=== PATIENT | male | born 1985 | race Caucasian/White ===

== ENCOUNTER 2020-10-09 07:59 | Inpatient (IN) | payer MEDICAID ==
[~2020-10-09 07:59] MED LIST: Dexamethasone 4 MG/ML SDV ONE; Glycopyrrolate 0.2 MG/ML 5 ML MDV ONE; Neostigmine Methylsulfate 1 MG/ML 5 ML Syringe ONE; Ondansetron 4 MG/2 ML SDV ONE; Propofol 200 MG/20 ML SDV ONE; Rocuronium 50 MG/5 ML Vial ONE; Succinylcholine 200 MG/10 ML MDV ONE; cefOXitin 2 GM Vial ONE; fentaNYL 250 MCG/5 ML SDV ONE
[2020-10-09] MEDS ORDERED: Celecoxib 200 MG Cap PO ONE (08:15)
[2020-10-09] MEDS ORDERED: Scopolamine 1.5 MG Transdermal Patch TOP ONE (08:15)
[2020-10-09] MEDS ORDERED: Acetaminophen 500 MG Tab PO ONE (08:15)
[2020-10-09] MEDS ORDERED: Dextrose 5%-Lactated Ringers 1,000 ML IV SCH (08:30)
[2020-10-09] MEDS ORDERED: cefOXitin 2 GM in Sodium Chloride 0.9% 50 ML IV ONE (09:45)
[2020-10-09] MEDS ORDERED: Magnesium Sulfate/Water 2 GM/50 ML BAG IV SCH ×2 (10:00→10:15)
[2020-10-09] MEDS ORDERED: Ketamine 500 MG/5 ML MDV IV SCH (10:00)
[2020-10-09] MEDS ORDERED: Ketamine 50 MG in Sodium Chloride 0.9% 49.5 ML IV SCH (10:00)
[2020-10-09] MEDS ORDERED: fentaNYL 250 MCG/5 ML SDV ONE ×2 (10:22→11:00)
[2020-10-09] MEDS ORDERED: Rocuronium 50 MG/5 ML Vial ONE (11:26)
[2020-10-09] MEDS ORDERED: Lactated Ringers 1,000 ML ONE (12:09)
[2020-10-09] MEDS ORDERED: hydrOXYzine HCL 100 MG/2 ML SDV IM ONE (14:28)
[2020-10-09] MEDS ORDERED: Cyclobenzaprine 10 MG Tab PO PRN (15:41)
[2020-10-09] MEDS ORDERED: Ondansetron 4 MG/2 ML SDV IVPUSH PRN (16:00)
[2020-10-09] MEDS ORDERED: Metoclopramide 10 MG/2 ML SDV IVPUSH PRN (16:00)
[2020-10-09] MEDS ORDERED: Labetalol 20 MG/4 ML Syringe IVPUSH PRN (16:00)
[2020-10-09] MEDS ORDERED: HYDROmorphone 0.5 MG/0.5 ML Syringe IVPUSH PRN (16:00)
[2020-10-09] MEDS ORDERED: Calcium Gluconate 10% 1 GM/10 ML SDV IVPUSH PRN (16:00)
[2020-10-09] MEDS ORDERED: Acetaminophen 500 MG Tab PO PRN (16:00)
[2020-10-09] MEDS ORDERED: HYDROmorphone 1 MG/ML Syringe IV PRN (16:00)
[2020-10-09] MEDS ORDERED: oxyCODONE 5 MG Tab PO PRN (16:00)
[2020-10-09] MEDS ORDERED: diphenhydrAMINE 50 MG/ML SDV IVPUSH PRN (16:00)
[2020-10-09] MEDS: MVI, Adult with Vitamin K 10 ML, Thiamine 200 MG, Zinc/Copper/Manganese/Selenium 1 ML i... IV SCH ×4 (16:21)
[2020-10-09] MEDS: cefOXitin 2 GM in Sodium Chloride 0.9% 50 ML IV SCH ×2 (16:23→21:57)
[2020-10-09] MEDS: Pantoprazole 40 MG Vial IVPUSH SCH (16:30)
[2020-10-09] MEDS: Acetaminophen 500 MG Tab PO SCH ×2 (16:31→23:26)
[2020-10-09] MEDS: Heparin Sodium 5,000 Units/ML Vial SUBCUT SCH (17:36)
[2020-10-09] MEDS: hydrOXYzine HCL 100 MG/2 ML SDV IM PRN (20:17)
[2020-10-09] MEDS: Dextrose 5%-Lactated Ringers 1,000 ML IV SCH (23:00)
[2020-10-10] MEDS: hydrOXYzine HCL 100 MG/2 ML SDV IM PRN ×2 (02:53→14:24)
[2020-10-10] MEDS: Heparin Sodium 5,000 Units/ML Vial SUBCUT SCH ×3 (03:00→17:19)
[2020-10-10] MEDS: cefOXitin 2 GM in Sodium Chloride 0.9% 50 ML IV SCH ×4 (04:07→21:29)
[2020-10-10] MEDS: Dextrose 5%-Lactated Ringers 1,000 ML IV SCH ×2 (04:47→08:57)
[2020-10-10] MEDS ORDERED: Iopamidol 612 MG/ML 50 ML SDV PO ONE (05:35)
--- NOTE | 2020-10-10 06:42 | CRLCR ---
For Patients: As a result of the Century Cures Act, medical imaging exams and procedure reports are released immediately into your electronic medical record. You may view this report before your referring provider. If you have questions, please contact your health care provider. INDICATION: Status post bariatric surgery. COMPARISON: None available. FINDINGS: For films of the abdomen are obtained in the erect position during the swallowing of 50 cc of Isovue-300. The initial image is a workforce planner view which shows a Deejay-Sanders drain in the left epigastric region, as well as a Deejay-Sanders drain in the central upper abdomen crossing the midline. The bowel gas pattern is unremarkable with no distention to suggest obstruction or ileus. There is no sign of free air. With the swelling of contrast, there is opacification of the small gastric remnant and prompt passage of contrast through the gastrojejunostomy, with no sign of any obstruction. There is no sign of any extravasation of contrast from the gastric remnant. The osseous structures are normal in appearance for the patient`s age. The lung bases are clear. The heart appears to be mildly enlarged, but this is probably projectional. IMPRESSION: Prompt passage of contrast from the gastric remnant into the nondistended jejunum. No sign of any extravasation of contrast from the bowel. Dictated by Christian Lyles MD @ 10/10/2020 6:40:[address] Christian Lyles @ Oct 10 2020 6:40AM
[2020-10-10] MEDS: Acetaminophen 500 MG Tab PO SCH ×3 (08:41→23:03)
[2020-10-10] MEDS: SCOPOLAMINE PATCH CHECK TOP SCH (08:42)
[2020-10-10] MEDS: Celecoxib 200 MG Cap PO SCH ×2 (08:42→21:28)
[2020-10-10] MEDS: traMADol 50 MG Tab PO PRN ×2 (09:10→21:28)
[2020-10-10] MEDS: Pantoprazole 40 MG Vial IVPUSH SCH (15:48)
[2020-10-10] MEDS: MVI, Adult with Vitamin K 10 ML, Thiamine 200 MG, Zinc/Copper/Manganese/Selenium 1 ML i... IV SCH ×4 (15:48)
[2020-10-11] MEDS: cefOXitin 2 GM in Sodium Chloride 0.9% 50 ML IV SCH ×2 (03:01→09:18)
[2020-10-11] MEDS: Heparin Sodium 5,000 Units/ML Vial SUBCUT SCH ×3 (03:01→18:48)
[2020-10-11] MEDS: Dextrose 5%-Lactated Ringers 1,000 ML IV SCH (03:06)
[2020-10-11] MEDS: traMADol 50 MG Tab PO PRN ×2 (03:33→20:33)
[2020-10-11] MEDS: Acetaminophen 500 MG Tab PO SCH ×2 (08:11→16:46)
[2020-10-11] MEDS: Bisacodyl 5 MG Tab PO SCH ×2 (08:11→20:24)
[2020-10-11] MEDS: Docusate Sodium 100 MG Cap PO SCH ×2 (08:11→20:24)
[2020-10-11] MEDS: SCOPOLAMINE PATCH CHECK TOP SCH (08:12)
[2020-10-11] MEDS: Celecoxib 200 MG Cap PO SCH ×2 (08:12→20:24)
[2020-10-11] MEDS ORDERED: Cyanocobalamin (Vitamin B12) 1,000 MCG/ML SDV IM ONE (09:00)
[2020-10-11] MEDS: hydrOXYzine HCl 25 MG Tab PO PRN ×2 (11:51→16:46)
--- NOTE | 2020-10-11 15:57 | PN ---
DATE OF SERVICE: 10/11/2020 The patient has been afebrile with stable vital signs. He has been feeling a little bit bloated and he did not pass we will give him some bowel stimulation today. The bile in TITUS #2 has lightened up quite a bit and the volume has been very low. So at this point, it appears likely that it is going to seal on its own and we elected not to do a CT scan of the abdomen today as that will unlikely give us much information as the bile leak is almost coming from the duodenal stump and again appeared to be slowing down. We will teach the patient TITUS care today and give him some bowel stimulation, I think he will be ready for discharge home tomorrow. Dylan Guthrie MD /[id number]
[2020-10-11] MEDS ORDERED: Pantoprazole 40 MG Delayed-Release Granules 1 Packet PO SCH (16:30)
[2020-10-12] MEDS: Acetaminophen 500 MG Tab PO SCH ×2 (00:02→07:33)
[2020-10-12] MEDS: Heparin Sodium 5,000 Units/ML Vial SUBCUT SCH (02:38)
[2020-10-12] MEDS: Docusate Sodium 100 MG Cap PO SCH (08:35)
[2020-10-12] MEDS: Celecoxib 200 MG Cap PO SCH (08:35)
[2020-10-12] MEDS: Bisacodyl 5 MG Tab PO SCH (08:36)
--- NOTE | 2020-10-12 09:45 | PN ---
DATE OF SERVICE: 10/10/2020 The patient is postop day 1 from a laparoscopic duodenal switch. The case was somewhat difficult in terms of the duodenal stump with very poor quality and the stitches were seen to be falling through to a point just proximal to the pylorus, that anastomosis appeared to be satisfactory. Did develop spontaneous peritonitis with some bile leak. This appeared to be pure bile with no suggestion of any ingested contents within it. The upper GI x-ray in my view looks okay with no obvious leaks and the patient clinically looks entirely stable. Given this, my suspicion is we are dealing with a duodenal stump leak. The output from that overnight is around 30 mL. We will see how that goes over the next 24 hours. If that output increases, we will obtain a CT scan and perhaps consider reoperating depending on his clinical status. An alternative would be to obtain a HIDA scan on Monday to definitively document the site of the bile leak at that point. Otherwise, we will back down on the IV rate, go up to a step-2 diet. The Simeon catheter will come out. Recheck some labs in the morning. Maximize activity and work with pulmonary toilet. Dylan Guthrie MD /[id number]
[2020-10-12] MEDS: traMADol 50 MG Tab PO PRN (09:48)
--- NOTE | 2020-10-12 15:21 | DISCH ---
ADMISSION DIAGNOSES: 1. Morbid obesity. 2. Body mass index 54.8. 3. Obstructive sleep apnea syndrome. 4. Joint pain. 5. Back pain. DISCHARGE DIAGNOSES: 1. Laparoscopic duodenal switch. 2. Liver biopsy. 3. Repair of diaphragmatic hernia. 4. Excision of mediastinal lipoma. 5. Additional nodules and small bowel resection. POSTOPERATIVE DIAGNOSES: Morbid obesity, hepatomegaly, diaphragmatic hernia, mediastinal lipoma, several friable proximal nodules requiring additional duodenal and small bowel resection. Date of procedure: 10/09/2020. Surgeon: Dylan Guthrie MD. HISTORY: Joshua Marinelli is a 35-year-old male with longstanding history of morbid obesity and increasing comorbidities. After preoperative evaluation and discussion of possible risks and possible complications, he wished to proceed with surgical procedure. HOSPITAL COURSE: Joshua had his surgery on 10/09/2020. He had no operative complications. On postoperative day #1, his upper GI was normal. His TITUS drain number #2 did put out a bile-colored drainage and he was able to start step 2 gastric bypass diet without cereal, and on postoperative day #2, bowel stimulation was given. His activity was good. Pain was well managed. Vital signs stable. On postoperative day #3, he did have a bowel movement, received dietary instructions. He had a vitamin B12 1000 mcg injection and he was able to be discharged to home. PHYSICAL EXAMINATION: GENERAL: Joshua Marinelli is a pleasant 35-year-old male. He is alert, orientated. VITAL SIGNS: Height 5 feet 9 inches, weight is 371 pounds, BMI is 54.8. TPR is 97.3, 93, 18, blood pressure 127/65. HEENT: Negative. NECK: Supple. HEART: Regular rate and rhythm. LUNGS: Clear. ABDOMEN: Sutures intact. Incisions healing well. He has 2 TITUS drains. TITUS drain #1 put out 95 mL of a light red drainage and TITUS drain #2 put out 75 mL a bile-colored drainage. TITUS drain #1 will be removed prior to discharge. Abdominal binder has been on. EXTREMITIES: Without peripheral edema. DISPOSITION: Discharged to home. CONDITION: Stable and improving. FOLLOWUP APPOINTMENT: With Naty Akers PA-C, on 10/21/2020 at 10 a.m. HOME MEDICATIONS: 1. Tramadol 50 mg p.o. q.6 hours p.r.n. pain, #12. 2. Zofran ODT 4 mg every 6 hours p.r.n. nausea, #30. 3. Celebrex 200 mg p.o. b.i.d. for 2 weeks. 4. Tylenol 1000 mg p.o. q.8 hours scheduled for pain. DIET: Step 2 gastric bypass diet without cereal until 11/09/2020. Drink 8 to 10 glasses of water a day, 65 g of protein. Shower/bathing: May shower. ACTIVITY: Walk 6 times daily inside your home. DISCHARGE INSTRUCTIONS: Wound incision care: Keep operative site clean and dry. Wear abdominal binder for 2 weeks and then as tolerated. Strip, empty, measure, and record TITUS drain 4 times a day, and when it is half full, record color and amount. Notify provider if any fever, increased pain, swelling, redness, drainage, nausea, vomiting. SPECIAL INSTRUCTION: 1. Use incentive spirometer 10 times every hour while awake for 1 week. 2. Empty TITUS drain 4 times a day, measure the amount and note the color. Bring to clinic appointment. /[id number]
--- NOTE | 2020-10-12 16:01 | PCM.EKG ---
#1 Interpretation EKG Date: 10/09/20 Time: 08:30 Rhythm: NSR Rate (Beats/Min): 76 [place]: Normal P-Wave: Present QRS: Other (Early transition precordial leads) ST-T: Normal QT: Normal Comparison: NA - No Prior EKG
--- NOTE | 2020-10-19 10:41 | OR ---
DATE OF PROCEDURE: 10/09/2020 SURGEON: Dylan Guthrie MD PREOPERATIVE DIAGNOSIS: Morbid obesity. POSTOPERATIVE DIAGNOSES: 1. Morbid obesity. 2. Marked hepatomegaly. 3. Paraesophageal diaphragmatic hernia. 4. Mediastinal lipoma. 5. Scar identifiable in proximal duodenum requiring additional duodenum and small-bowel resection. OPERATIVE PROCEDURES: Diagnostic laparoscopy with: 1. Laparoscopic duodenal switch (96605). 2. Mehul-Cut needle liver biopsy (64635). 3. Repair of paraesophageal diaphragmatic hernia (99697). 4. Excision of mediastinal lipoma (64916). 5. Additional duodenal and small bowel resection (76700). ANESTHESIA: General. PEOPLESOFT FSCM DEVELOPER: Naty Akers PA-C INDICATIONS FOR PROCEDURE: This is a 35-year-old presenting with longstanding morbid obesity and increasingly significant comorbidities. The plan is to proceed with a laparoscopic or if necessary open duodenal switch. Potential risks of the procedure including bleeding, infection, injury to underlying viscera, leaks from any GI tract closures, as well as possibility of cardiopulmonary, septic, or hemorrhagic complications leading to were discussed, and the patient wishes to proceed. DETAILS OF PROCEDURE: The patient was taken to the operating room and placed in a supine position. After general endotracheal anesthesia was induced, he was converted to a lithotomy position and the Simeon catheter inserted and the abdomen prepped and draped. 20 cm inferior and 5 cm left of the xiphoid process, a transverse incision was made and the peritoneal cavity entered under direct vision with an Optiview trocar, inflated to 15 mmHg pressure of CO2. Laparoscope was reinserted. No underlying trocar insertion site injuries were seen. Following this, bilateral transversus abdominis plane blocks were placed and 6 additional trocars were placed across the upper and mid abdomen. Liver was noted to be markedly enlarged and fatty infiltrated. Mehul-Cut needle biopsy was obtained from the left lobe of the liver. Minimal bleeding from the biopsy sites was controlled with electrocautery. At this point, the liver was retracted anteriorly. The patient was noted to have a significant paraesophageal diaphragmatic hernia with prolapse of stomach, some perigastric fat, and omentum in a plane anterior to the course of the esophagus. This was reduced. The peritoneum overlying it was divided and reflected downward. During the course of the dissection, mediastinal lipoma was encountered and this was excised and sent as a separate specimen. An anterior repair of the diaphragmatic hernia was then accomplished with 0 Ethibond sutures reinforced with PTFE pledgets. At this point, the pylorus was marked with electrocautery and the greater omentum was then divided away from the greater curvature of the stomach with Harmonic Scalpel. This extended eventually to the highest and posterior short gastric vessels and the fundus of the stomach was dissected nicely away from the left reji to avoid a cul-de-sac of extra stomach in that area. The dissection then continued distally to a point 4 cm distal to the pylorus. At that point, the small bowel was identified at the ileocecal valve, and I walked back 300 cm, this area was then marked with a suture and was noted to come up adequately to the duodenum for subsequent anastomosis without significant tension. At this point, the sleeve gastrectomy was constructed, initially beginning 6 cm proximal to the pylorus. The anterior aspect of the stomach was marked with electrocautery going from a right to left direction underneath the incisura angularis with care to avoid overtightening of the area underneath the incisura angularis. The first 3 firings of the sleeve gastrectomy was then accomplished with unreinforced black loads. Following this, then the remainder of sleeve gastrectomy was accomplished over a 40-Lebanese chest tube which had been placed orally per Anesthesia and positioned up against the lesser curvature of the stomach, the remaining staple lines were reinforced black loads. The stomach was then taken off to the side, and that the sleeve gastrectomy specimen was subsequently removed at the conclusion of the procedure. The duodenum was then dissected on its posterior and superior aspects at a point 4 cm distal to the pylorus. Once this was dissected out, it was then divided with 2 firings of the reinforced purple ZEB loads. One additional firing of the otto load on the superior aspect of the distal aspect of the duodenum just beyond the pylorus was then made to outline that segment of the duodenum to descend inferiorly to improve the lack of any tension on the incision. Sutures were then placed between the superior end of the proximal divided duodenum along with the inferior aspect of that area with 2-0 Vicryl sutures to the adjacent ileum and duodenotomy was made along with enterotomy of the adjacent ileum and a ZEB 30 mm otto load was then placed with 1 arm in each of the adjacent segments of the open bowel and fired. It was noted at this point that due to the duodenum at this point was extremely friable and the staple lines in fact had more or less partially opened up, it was felt that the patient probably had some previous ulcer disease in that area which resulted in a friable and scarred proximal duodenum, and it was felt at this point this would not be a safe level for the anastomosis. Given this, at the point where the small bowel had been divided at the initial attempted anastomosis was obviously narrowed and this was flipped over on itself and enterotomies placed on each side and that area then reinforced by means of a stricturoplasty type approach with internal firing of the ZEB otto load, initially a 60 mm, followed by a 30 mm staple line. The common opening was then closed transversely with same stapler and the angles anastomosed and then reinforced with some 3-0 Vicryl stitch. Just slightly distal part of this, maintaining essentially still 300 cm proximal extent of the small bowel anastomosis, sutures were placed between the small bowel and the distal stomach. Holding this generally in place, these sutures did hold nicely. A small gastrotomy was then placed along with the incision and the adjacent ileum and this anastomosis was then initiated with an internal firing of the Endo-ZEB 30 mm purple load. The common opening was then closed with ZEB purple load and that anastomosis at that point appeared to be satisfactory. We elected not to create a second Maykel limb as this at this point would put the initial anastomosis at risk in terms of the increased tension towards manipulation. The duodenal stump along with the anastomosis and sleeve gastrectomy line was then reinforced with fibrin sealant, and leak test was accomplished with injection of air into the chest tube with air easily flowing across the gastroileostomy, and no leaks were noted along any of the staple lines. At this point, the gastric specimen was retrieved and 2 Deejay-Sanders drains were placed, 1 in the area of the gastroileostomy and adjacent to the duodenal stump, and the second up against the esophagogastric junction, and from there into the splenic fossa. The trocars were then sequentially removed. The peritoneal cavity deflated. Incisions were closed with 4-0 Vicryl stitch, which was also used to fix the drains. The patient was taken to the recovery room in satisfactory condition. There were no evident complications. Physician ssn/ssbn assistant navigator, Naty Akers, played an essential role in assisting in this case, helping to position the patient, retract structures as needed, as well as suturing and cutting sutures when indicated. Her presence improved patient safety and decreased operative time. Dylan Guthrie MD /[id number]
== END 2020-10-12 10:26 | disposition home or self-care (01) | DRG 621 ==
LOC: JP.SDS 07:59 → JP.SDSSCHI 08:01 → EDSTATUS 09:15 → JP.MS 14:10
PROVIDERS: ADMIT Surgery; ATTEND Surgery
PROC: 0D194ZB Bypass Duodenum to Ileum, Percutaneous Endoscopic Approach (ICD-10-PCS; principal; 2020-10-09)
PROC: 0FB24ZX Excision of Left Lobe Liver, Percutaneous Endoscopic Approach, Diagnostic (ICD-10-PCS; 2020-10-09)
PROC: 0BQT4ZZ Repair Diaphragm, Percutaneous Endoscopic Approach (ICD-10-PCS; 2020-10-09)
PROC: 0DB84ZZ Excision of Small Intestine, Percutaneous Endoscopic Approach (ICD-10-PCS; 2020-10-09)
PROC: 0JB63ZZ Excision of Chest Subcutaneous Tissue and Fascia, Percutaneous Approach (ICD-10-PCS; 2020-10-09)
DX: E66.01 Morbid (severe) obesity due to excess calories (principal); Z68.43 Body mass index [BMI] 50.0-59.9, adult; G47.33 Obstructive sleep apnea (adult) (pediatric); M54.9 Dorsalgia, unspecified; R16.0 Hepatomegaly, not elsewhere classified; D17.4 Benign lipomatous neoplasm of intrathoracic organs; K44.9 Diaphragmatic hernia without obstruction or gangrene; F32.9 Major depressive disorder, single episode, unspecified
CPT/HCPCS: 36415; 74240; 80053; 83735; 83880; 84100; 85025; 85027; 86850; 86900; 86901; 88304; 88305; 88307; 88313; 93005; 94762; A9270-GY; C9113; J0171; J0330; J0694; J1100; J1644; J2405; J2704; J2710; J2795; J3010; J3410; J3411; J3420; J3475; J3490; J7050; J7120; J7121; Q9967